=== PATIENT | female | born 1950 | race Caucasian/White ===

== ENCOUNTER → 2016-12-02 | Outpatient (CLI) | payer BC ==
[~2016-12-02] MED LIST: ASPI81TA28 PO; CALC500C70 PO; FLUO40CA8 PO; LDDP5 TOP; MULT-506 PO; NAPR-1169 PO; PRAV20TA PO
[2016-12-02 13:45] LABS: CHOLESTEROL/HDL RATIO 2.7
--- NOTE | 2016-12-08 09:57 | CODING QUERY MEDICAL NECESSITY ---
SUPPORTING DIAGNOSIS NEEDED Dr. Zhang, A supporting diagnosis is required for the test/procedure performed on this patient in order for us to be reimbursed by the patient's insurance. Please provide a supporting diagnosis for the following test/procedure listed below next to the test name along with your signature. *If there is no additional diagnosis for this patient that would support the following test/procedure please document that below next to the test/procedure. Test(s)/Procedure(s) that require a supporting diagnosis: * ([id number]) VITAMIN D ASSAY DIAGNOSIS: DATE OF SERVICE: 12/02/16 Provider Signature: Date: Thank you Fahad Locke [facility] Information Management Once completed, please kindly fax back to [phone] For questions please call [phone]
== END | disposition home or self-care (01) ==
LOC: C.LABMFLN 12:09
PROVIDERS: ATTEND Family Medicine
DX: E78.5 Hyperlipidemia, unspecified (principal); M85.80 Other specified disorders of bone density and structure, unspecified site; E55.9 Vitamin D deficiency, unspecified

== ENCOUNTER → 2017-03-27 | Outpatient (CLI) | payer BC ==
--- NOTE | 2017-03-27 12:57 | MAMMOGRAPHY REPORT ---
BILATERAL DIGITAL SCREENING MAMMOGRAM WITH CAD: 03/27/2017 CLINICAL HISTORY: Routine screening. Patient has no complaints. TECHNIQUE: Current study was also evaluated with a Computer Aided Detection (CAD) system. Bilateral CC and MLO views were obtained. COMPARISON: Comparison is made to exams dated: 03/25/2016 mammogram, 03/23/2015 mammogram, 03/22/2014 m ammogram, 03/21/2013 mammogram, 03/09/2012 mammogram, and 03/04/2011 mammogram - [facility] [address] nter. BREAST COMPOSITION: The tissue of both breasts is heterogeneously dense, which may obscure small mas ses. FINDINGS: No suspicious masses, calcifications, or areas of architectural distortion are noted in ei ther breast. There has been no significant interval change compared to prior exams. Small nodular as ymmetry in the left superior posterior breast on the MLO view is stable dating back to at least the 2 009 exam, and considered benign given long-term stability. IMPRESSION: ACR BI-RADS CATEGORY 2: BENIGN There is no mammographic evidence of malignancy. A 1 year screening mammogram is recommended. The pa tient will receive written notification of the results. Approximately 10% of breast cancers are not detected with mammography. A negative mammographic report should not delay biopsy if a clinically suggestive mass is present. Barbara Noel M.D. /:03/27/2017 12:07:41 Recruitment And Outreach Assistant: Molly Cruz [facility] letter sent: Normal 1/2 BI-RADS Code: ACR BI-RADS Category 2: Benign
== END | disposition home or self-care (01) ==
LOC: C.MAMM 11:15
PROVIDERS: ATTEND Family Medicine
DX: Z12.31 Encounter for screening mammogram for malignant neoplasm of breast (principal)

== ENCOUNTER → 2017-05-29 | Outpatient (CLI) | payer BC ==
[2017-05-29 13:18] LABS: BASO % 0.4 %; BASO ABS # 0.02 K/uL (0-0.2); COMPLETE YES; EOS % 1.2 %; HEMATOCRIT 40.3 % (37-47); IG% 0.2 %; LYMPH % 38.3 %; LYMPH ABS # 1.92 K/uL (1.2-3.4); MEAN CORPUSCULAR HEMOGLOBIN 29.8 pg (25-34); MEAN CORPUSCULAR HGB CONC 32.8 g/dl (32-36); MEAN PLATELET VOLUME 11.9 fL (7.4-10.4); MONO % 8.6 %; NEUT % 51.3 %; PLATELET COUNT 163 K/uL (130-400); RED BLOOD COUNT 4.43 M/uL (4.2-5.4); WHITE BLOOD COUNT 5.01 K/uL (4.8-10.8)
[2017-05-29 14:12] LABS: CHOLESTEROL/HDL RATIO 2.1
[2017-05-29 15:53] LABS: BLOOD UREA NITROGEN 11 mg/dl (7-18); BUN/CREATININE RATIO 14.2 (10-20); CREATININE 0.77 mg/dl (0.60-1.20)
== END | disposition home or self-care (01) ==
LOC: C.LABMFLN 07:56
PROVIDERS: ATTEND Family Medicine
DX: R10.32 Left lower quadrant pain (principal); E78.5 Hyperlipidemia, unspecified; K92.1 Melena

== ENCOUNTER → 2017-05-29 | Outpatient (CLI) | payer BC ==
[~2017-05-29] MED LIST changes: +OPTIRAY 320 IV PRN
--- NOTE | 2017-05-29 19:39 | DIAGNOSTIC IMAGING REPORT ---
ABD/PELVIS IV AND ORAL CONT HISTORY: 67 years-old Female R10.32 Left lower quadrant abdominal pain of unknown [id number] acute left lower quadrant abdominal pain. History of prior appendectomy. COMPARISON: CT abdomen and pelvis 11/25/2010 TECHNIQUE: Multiple axial CT images of the abdomen and pelvis were obtained following the intravenous administration of 118 mL Optiray 320. Oral contrast was also used. A dose lowering technique was used consistent with the principals of MARY. FINDINGS: Mild dependent bibasilar atelectasis. No pneumoperitoneum identified. The imaged inferior cardiac chambers are unremarkable. The liver, spleen, pancreas, gallbladder and adrenal glands are within normal limits. Kidneys, ureters and urinary bladder are within normal limits. Prior hysterectomy. The abdominal aorta is normal in both course and caliber. No bulky retroperitoneal adenopathy. No bowel obstruction. There is moderate wall thickening of the sigmoid colon with mild adjacent inflammatory stranding. Several diverticula are noted within this distribution. No evidence of perforation or abscess. Prior appendectomy. Soft tissues are within normal limits. 1.1 cm area of sclerosis involving the right sacral ala is unchanged suggesting bone island. Bones appear intact. IMPRESSION: 1. Findings compatible with acute uncomplicated sigmoid diverticulitis. Follow-up colonoscopy after treatment recommended to exclude possible underlying neoplasm. 2. Prior appendectomy and hysterectomy. The above report was generated using voice recognition software. It may contain grammatical, syntax or spelling errors. Electronically signed by: Andrae Contreras M.D. 05/29/2017 7:38 PM Dictated Date/Time: 05/29/2017 7:32 PM
== END | disposition home or self-care (01) ==
LOC: C.CTS 16:57
PROVIDERS: ATTEND Family Medicine
DX: R10.32 Left lower quadrant pain (principal); K92.1 Melena; Z90.89 Acquired absence of other organs; Z90.710 Acquired absence of both cervix and uterus

== ENCOUNTER → 2017-06-23 | Outpatient (CLI) | payer BC ==
[~2017-06-23] MED LIST changes: +GADAVIST IV PRN; -OPTIRAY 320 IV PRN
--- NOTE | 2017-06-23 11:39 | DIAGNOSTIC IMAGING REPORT ---
MR ANGIOGRAPHY OF THE [place] NO CONTRAST CLINICAL HISTORY: R51 [id number] COMPARISON STUDY: None. A 3-D bapy-up-hqrhht MR angiographic sequence of the [place] was performed. Both the source and projection images were reviewed. There is no evidence of major intracranial branch occlusion. There is no evidence of intracranial stenosis. There are no lesions suspicious for aneurysm. 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 IMPRESSION: Unremarkable MR angiography of the [place]. Electronically signed by: Kenneth Carroll M.D. 06/23/2017 11:37 AM Dictated Date/Time: 06/23/2017 11:34 AM
--- NOTE | 2017-06-23 11:48 | DIAGNOSTIC IMAGING REPORT ---
MRI OF THE BRAIN WITHOUT CONTRAST CLINICAL HISTORY: R51 [id number] COMPARISON STUDY: None. FINDINGS: Sagittal T1, axial diffusion, proton density and T2 weighted axial, coronal FLAIR, and axial T1-weighted images were acquired. No intra or extra-axial mass lesions are visualized Axial diffusion-weighted images reveal no evidence of acute or subacute infarction. There is no evidence of ventricular dilatation. Proton density T2-weighted and FLAIR images reveal scattered foci of increased T2 signal within the white matter, likely on a small vessel basis. There are no abnormal flow voids. IMPRESSION: 1. No acute intracranial findings 2. No evidence of intracranial mass 3. No evidence of acute or subacute infarction 4. Scattered foci of increased T2 signal within the white matter, likely on a small vessel basis Electronically signed by: Kenneth Carroll M.D. 06/23/2017 11:47 AM Dictated Date/Time: 06/23/2017 11:44 AM
--- NOTE | 2017-06-23 12:22 | DIAGNOSTIC IMAGING REPORT ---
NECK MRA HISTORY: R51 [id number] TECHNIQUE: Nnzz-rr-fydiod and gadolinium-enhanced MRA of the neck was performed both before and after the intravenous administration of contrast. All measurements were calculated based on NASCET criteria. The patient was administered 6.3 cc of intravenous Gadavist COMPARISON STUDY: None. FINDINGS: The aortic arch and proximal great vessels are widely patent. There is no significant stenosis, occlusion, or dissection identified within the bilateral common carotid, internal carotid, or vertebral arteries. There is a dominant left vertebral artery. IMPRESSION: No significant stenosis, occlusion, or dissection identified within the carotid or vertebral arteries. Electronically signed by: Kenneth Carroll M.D. 06/23/2017 12:21 PM Dictated Date/Time: 06/23/2017 12:19 PM
== END | disposition home or self-care (01) ==
LOC: C.MRI 10:00
PROVIDERS: ATTEND Family Medicine
DX: R42 Dizziness and giddiness (principal); R51 Headache

== ENCOUNTER → 2017-08-12 | Outpatient (CLI) | payer BC ==
[~2017-08-12] MED LIST changes: +ASPCH81X PO; -ASPI81TA28 PO; -CALC500C70 PO; +CALC600T9 PO; +CLB/200 PO; +FLUO20CA35 PO; -FLUO40CA8 PO; -GADAVIST IV PRN; -LDDP5 TOP; +LEVO50TA6 PO; +MISCCAP80 PO; -NAPR-1169 PO; -PRAV20TA PO; +ROSU40TA PO
== END | disposition home or self-care (01) ==
LOC: C.LABMFLN 12:09
PROVIDERS: ATTEND Family Medicine
DX: E03.9 Hypothyroidism, unspecified (principal)

== ENCOUNTER → 2017-08-17 | Day surgery (SDC) | payer BC ==
[2017-08-07 10:54] VITALS: Ht 159.4 cm; Wt 61.8 kg
[~2017-08-17] VITALS: Ht 159.4 cm; Wt 61.8 kg
[~2017-08-17] MED LIST changes: +LIDOCAINE HCL 2% 2 ML VIAL (20MG/ML) ONE; +MIDAZOLAM HCL 1 MG/ML 2ML VIAL ONE; +ONDANSETRON INJ 2 MG/ML 2 ML VIAL ONE; +PROPOFOL IV EMULSION 10 MG/ML 20 ML VIAL IV ONE; +SODIUM CHLORIDE 0.9% 500ML 500 ML IV ONE
--- NOTE | 2017-08-17 08:28 | Endo History and Physical ---
History & Physical Date of Service: Aug 17, 2017. Chief Complaint: screening Referring Physician: Dr. Osmin Zhang History of Present Illness 67 yo CF who presents for screening colonoscopy. Past Medical History Anxiety, Depression Past Surgical History Hx Cardiac Surgery: No Hx Internal Defibrillator: No Hx Pacemaker: No Hx Abdominal Surgery: Yes (APPY, HYSTERECTOMY) Hx of Implantable Prosthesis: No Hx Post-Op Nausea and Vomiting: No Hx Cancer Surgery: No Hx Thoracic Surgery: No Hx Orthopedic: No Hx Urinary Tract Surgery: No Family History None Social History Smoking Status: Former Smoker Hx Substance Use: No Hx Alcohol Use: Yes (RARELY) Allergies Coded Allergies: Atorvastatin (Verified Allergy, Unknown, HIVES, 08/17/17) Niacin (Verified Allergy, Unknown, HIVES, 08/17/17) Tramadol (Verified Allergy, Unknown, CHILLS/DIAPHORESIS, 08/07/17) Current Medications Reported Home Medications Medications Dose Route/Sig Max Daily Dose Days Date Category Probiotic (Probiotic Product) 1 Cap Cap 1 Cap PO QAM 08/07/17 Reported CeleBREX (Celecoxib) 200 Mg Cap 200 Mg PO QAM 08/07/17 Reported Multivitamin (Multivitamins) Tab 1 Tab PO QAM 08/07/17 Reported Calcium + D (Calcium Carbonate-Vitamin D) 1 Tab Tab 1 Tab PO QAM 08/07/17 Reported Aspirin Chewable (Aspirin) 81 Mg Chew 81 Mg PO QPM 08/07/17 Reported Levothyroxine Sodium 50 Mcg Tab 1 Tab PO QAM 08/07/17 Reported Prozac (Fluoxetine HCl) 20 Mg Cap 2 Tab PO QPM 08/07/17 Reported Prozac (Fluoxetine HCl) 20 Mg Cap 20 Mg PO QAM 08/07/17 Reported Crestor (Rosuvastatin Calcium) 40 Mg Tab 40 Mg PO HS 08/07/17 Reported Vital Signs Weight (Kilograms): 61.82 Height (Feet): 5 Height (Inches): 2.75 Date Time Temp Pulse Resp B/P (MAP) Pulse Ox O2 Delivery O2 Flow Rate FiO2 08/17/17 08:12 36.6 60 16 127/74 (91) 96 Room Air Physical Exam General Appearance: WD/WN, no apparent distress Respiratory/Chest: Auscultation: breath sounds normal Cardiovascular: Heart Auscultation: RRR Abdomen: Bowel Sounds: normal Inspection & Palpation: soft, non-distended, no tenderness, guarding & rebound Assessment and Plan Assessment: 67 yo CF who presents for screening colonoscopy. Plan: Proceed with colonoscopy.
--- NOTE | 2017-08-17 08:55 | Discharge Instructions ---
Endoscopy Patient Instructions Date / Procedure(s) Performed Aug 17, 2017. Colonoscopy Allergy Information Coded Allergies: Atorvastatin (Verified Allergy, Unknown, HIVES, 08/17/17) Niacin (Verified Allergy, Unknown, HIVES, 08/17/17) Tramadol (Verified Allergy, Unknown, CHILLS/DIAPHORESIS, 08/07/17) Discharge Date / Findings Aug 17, 2017. Diverticulosis Internal hemorrhoids Medication Instructions Stopped Medication(s): no Celebrex since ,took ASA yesterday OK to resume all medications today as prescribed Reported Home Medications Medications Dose Route/Sig Max Daily Dose Days Date Category Probiotic (Probiotic Product) 1 Cap Cap 1 Cap PO QAM 08/07/17 Reported CeleBREX (Celecoxib) 200 Mg Cap 200 Mg PO QAM 08/07/17 Reported Multivitamin (Multivitamins) Tab 1 Tab PO QAM 08/07/17 Reported Calcium + D (Calcium Carbonate-Vitamin D) 1 Tab Tab 1 Tab PO QAM 08/07/17 Reported Aspirin Chewable (Aspirin) 81 Mg Chew 81 Mg PO QPM 08/07/17 Reported Levothyroxine Sodium 50 Mcg Tab 1 Tab PO QAM 08/07/17 Reported Prozac (Fluoxetine HCl) 20 Mg Cap 2 Tab PO QPM 08/07/17 Reported Prozac (Fluoxetine HCl) 20 Mg Cap 20 Mg PO QAM 08/07/17 Reported Crestor (Rosuvastatin Calcium) 40 Mg Tab 40 Mg PO HS 08/07/17 Reported Provider Instructions Activity Restrictions - No exercising or heavy lifting for 24 hours. - Do not drink alcohol the day of the procedure. - Do not drive a car or operate machinery until the day after the procedure. - Do not make any important decisions or sign important papers in 24 hours after the procedure. Following Day: - Return to full activity which may include returning to work/school. Diet Start your diet with liquids and light foods (jello, soup, juice, toast). Then eat your usual diet if not nauseated. Treatment For Common After Affects For mild abdominal pain, bloating, or excessive gas: - Rest - Eat lightly - Lie on right side Follow-Up Information Follow-up with Dr. Osmin Zhang as scheduled Anesthesia Information What You Should Know You have had a procedure that required some medicine to reduce anxiety and discomfort. This treatment is called moderate sedation. After receiving the treatment, you may be sleepy, but you will be able to breathe on your own. The effects of the treatment may last for several hours. Follow these instructions along with Activity/Diet recommendations noted above: * Do NOT do anything where dizziness or clumsiness would be dangerous. * Rest quietly at home today, then you can be up and about tomorrow. * Have a responsible person stay with you the rest of today. * You may have had an I.V. today. If so, you may take the dressing off later today. Recommendations Call your doctor if: * Trouble breathing * Continuous vomiting for more than 24 hours * Temperature above 101 degrees * Severe abdominal pain or bloating * Pain not relieved by pain medicine ordered * There is increased drainage or redness from any incision * A large amount of rectal bleeding greater than 2-3 tablespoons. (If you had a polyp/s removed or have hemorrhoids, a small amount of blood - from the rectum is to be expected.) * You have any unanswered questions or concerns. IN THE EVENT OF A SERIOUS EMERGENCY, GO TO THE NEAREST EMERGENCY ROOM Your discharge instructions were prepared by provider Immanuel Guzman. Patient Instructions Signature Page Yue Leach Patient (or Guardian) Signature/Date: I have read and understand the instructions given to me by my caregivers. Caregiver/RN/Doctor Signature/Date: The above-named patient and/or guardian has received patient instructions on this date. + Original Patient Signature Page (only) stays with chart. Please make copy for patient.
--- NOTE | 2017-08-17 09:00 | GI REPORT ---
Procedure Date: 08/17/2017 8:32 AM THIS REPORT HAS BEEN AMENDED Addendum Number: 1 Addendum Date: 08/17/2017 9:25:07 AM No specimens were collected on this exam, and therefore, no pathology is pending. No repeat colonoscopy secondary to patient's age and lack of adenomas. Procedure: Colonoscopy Indications: Screening for colorectal malignant neoplasm Medicines: Monitored Anesthesia Care Complications: No immediate complications. Estimated Blood Loss: Estimated blood loss: none. Procedure: Pre-Anesthesia Assessment: - Prior to the procedure, a History and Physical was performed, and patient medications and allergies were reviewed. The patient's tolerance of previous anesthesia was also reviewed. The risks and benefits of the procedure and the sedation options and risks were discussed with the patient. All questions were answered, and informed consent was obtained. Prior Anticoagulants: The patient has taken aspirin, last dose was 1 day prior to procedure. ASA Grade Assessment: II - A patient with mild systemic disease. After reviewing the risks and benefits, the patient was deemed in satisfactory condition to undergo the procedure. After I obtained informed consent, the scope was passed under direct vision. Throughout the procedure, the patient's blood pressure, pulse, and oxygen saturations were monitored continuously. The scope was introduced through the anus and advanced to the terminal ileum. The colonoscopy was performed without difficulty. The patient tolerated the procedure well. The quality of the bowel preparation was good. The terminal ileum, ileocecal valve, appendiceal orifice, and rectum were photographed. Findings: The perianal and digital rectal examinations were normal. Multiple small-mouthed diverticula were found in the sigmoid colon. Non-bleeding internal hemorrhoids were found during retroflexion. The hemorrhoids were small. Impression: - Diverticulosis in the sigmoid colon. - Non-bleeding internal hemorrhoids. - No specimens collected. Recommendation: - Resume previous diet. - Continue present medications. - Repeat colonoscopy for surveillance based on pathology results. - Return to primary care physician as previously scheduled. Immanuel Shannan Guzman, 08/17/2017 8:59:28 AM This report has been signed electronically. Note Initiated On: 08/17/2017 8:32 AM I attest to the content of the Intraoperative Record and orders documented therein, exceptions below Immanuel Campbell Thomas, DO 08/17/2017 9:26:02 AM This report has been signed electronically.
[2017-08-17 09:28] VITALS: BP 123/72; PULSE 57; O2SAT 96
--- NOTE | 2017-08-17 09:33 | Anesthesia Progress Nt - [facility] ---
Anesthesia Post Op Note Date & Time Aug 17, 2017 at 09:32 Vital Signs Pain Intensity: 0 Vital Signs Past 12 Hours Date Time Temp Pulse Resp B/P (MAP) Pulse Ox O2 Delivery O2 Flow Rate FiO2 08/17/17 09:13 55 16 97/68 (78) 96 Room Air 08/17/17 08:58 56 16 92/55 (67) 95 Room Air 08/17/17 08:12 36.6 60 16 127/74 (91) 96 Room Air Notes Mental Status: alert / awake / arousable, participated in evaluation Pt Amnestic to Procedure: Yes Nausea / Vomiting: adequately controlled Pain: adequately controlled Airway Patency, RR, SpO2: stable & adequate BP & HR: stable & adequate Hydration State: stable & adequate Anesthetic Complications: no major complications apparent
== END | disposition home or self-care (01) ==
LOC: C.GI 07:42
PROVIDERS: ATTEND Internal Medicine
DX: Z12.11 Encounter for screening for malignant neoplasm of colon (principal); K57.30 Diverticulosis of large intestine without perforation or abscess without bleeding; K64.8 Other hemorrhoids; Z88.9 Allergy status to unspecified drugs, medicaments and biological substances; Z90.89 Acquired absence of other organs; Z90.710 Acquired absence of both cervix and uterus; Z98.890 Other specified postprocedural states; F41.9 Anxiety disorder, unspecified; F32.9 Major depressive disorder, single episode, unspecified; Z79.82 Long term (current) use of aspirin

== ENCOUNTER → 2017-11-16 | Outpatient (CLI) | payer BC ==
[~2017-11-16] MED LIST changes: -LIDOCAINE HCL 2% 2 ML VIAL (20MG/ML) ONE; -MIDAZOLAM HCL 1 MG/ML 2ML VIAL ONE; -ONDANSETRON INJ 2 MG/ML 2 ML VIAL ONE; -PROPOFOL IV EMULSION 10 MG/ML 20 ML VIAL IV ONE; -SODIUM CHLORIDE 0.9% 500ML 500 ML IV ONE
== END | disposition home or self-care (01) ==
LOC: C.LABMFLN 11:32
PROVIDERS: ATTEND Family Medicine
DX: E03.9 Hypothyroidism, unspecified (principal)

== ENCOUNTER → 2018-01-13 | Outpatient (CLI) | payer BC ==
[2018-01-13 13:21] LABS: BASO % 0.4 %; BASO ABS # 0.02 K/uL (0-0.2); EOS % 2.4 %; EOS ABS # 0.13 K/uL (0-0.5); HEMATOCRIT 42.6 % (37-47); HEMOGLOBIN 14.5 g/dL (12.0-16.0); LYMPH % 36.5 %; LYMPH ABS # 1.94 K/uL (1.2-3.4); MEAN CELL VOLUME 89.9 fL (80-100); MEAN CORPUSCULAR HEMOGLOBIN 30.6 pg (25-34); MEAN PLATELET VOLUME 11.8 fL (7.4-10.4); MONO ABS # 0.37 K/uL (0.11-0.59); NEUT % 53.7 %; NEUT ABS # 2.85 K/uL (1.4-6.5); PLATELET COUNT 174 K/uL (130-400); RED CELL DISTRIBUTION WIDTH CV 13.1 % (11.5-14.5); RED CELL DISTRIBUTION WIDTH SD 43.6 fL (36.4-46.3); WHITE BLOOD COUNT 5.31 K/uL (4.8-10.8)
[2018-01-13 13:30] LABS: ALBUMIN 3.8 gm/dl (3.4-5.0); ALT/SGPT 31 U/L (12-78); AST/SGOT 26 U/L (15-37); BLOOD UREA NITROGEN 13 mg/dl (7-18); CALCIUM 9.1 mg/dl (8.5-10.1); CARBON DIOXIDE 31 mmol/L (21-32); GLUCOSE 89 mg/dl (70-99); POTASSIUM 4.2 mmol/L (3.5-5.1); SODIUM 138 mmol/L (136-145)
[2018-01-13 13:39] LABS: ALKALINE PHOSPHATASE 59 U/L (45-117); TOTAL PROTEIN 7.3 gm/dl (6.4-8.2); TRANSFERRIN 277 mg/dl (200-360)
== END | disposition home or self-care (01) ==
LOC: C.LABMFLN 07:23
PROVIDERS: ATTEND Family Medicine
DX: R41.3 Other amnesia (principal)

== ENCOUNTER → 2018-03-30 | Outpatient (CLI) | payer BC ==
--- NOTE | 2018-03-31 14:56 | MAMMOGRAPHY REPORT ---
BILATERAL DIGITAL SCREENING MAMMOGRAM TOMOSYNTHESIS WITH CAD: 03/30/2018 CLINICAL HISTORY: Routine screening. Patient has no complaints. TECHNIQUE: The study was acquired using full field digital technology and interpreted from soft copy. Breast tomosynthesis in addition to standard 2D mammography was performed. Current study was also ev aluated with a Computer Aided Detection (CAD) system. COMPARISON: Comparison is made to exams dated: 03/27/2017 mammogram, 03/25/2016 mammogram, 03/23/2015 m ammogram, 03/22/2014 mammogram, 03/21/2013 mammogram, and 03/09/2012 mammogram - [facility] enter. BREAST COMPOSITION: The tissue of both breasts is heterogeneously dense, which may obscure small mass es. FINDINGS: The parenchymal pattern is unchanged. No developing mass, architectural distortion or cluster of susp icious microcalcifications is seen in either breast. IMPRESSION: ACR BI-RADS CATEGORY 2: BENIGN There is no mammographic evidence of malignancy. A 1 year screening mammogram is recommended.( [id number]) The patient will receive written notification of the results. Some breast cancers are not detected with mammography. A negative mammographic report should not james y biopsy if a clinically suggestive mass is present. Virginia Cali M.D. ay/:03/30/2018 15:35:54 Set Up Inspector: RT Ladarius(R)(M), [facility] letter sent: Normal 1/2 BI-RADS Code: ACR BI-RADS Category 2: Benign
== END | disposition home or self-care (01) ==
LOC: C.MAMM 10:19
PROVIDERS: ATTEND Family Medicine
DX: Z78.0 Asymptomatic menopausal state (principal); M85.89 Other specified disorders of bone density and structure, multiple sites; Z12.31 Encounter for screening mammogram for malignant neoplasm of breast